=== PATIENT | male | born 1950 | race Caucasian/White ===

== ENCOUNTER 2021-02-12 14:10 | Emergency (ER) | payer MEDICARE, SELFPAY ==
[2021-02-12] VITALS (45 sets, daily range): BP systolic 122–164; BP diastolic 53–96; PULSE 55–76; RESP 10–26; TEMP 36.8; O2SAT 95–100
--- NOTE | ~2021-02-12 | XR_ITS ---
EXAMINATION: XR chest 2V DATE: 02/12/2021 15:05 INDICATION: Chest pain, shortness of breath and diaphoresis. TECHNIQUE: frontal and lateral views of the chest were obtained. COMPARISON: None FINDINGS: The lungs are clear with no focal airspace opacities, pulmonary edema, pleural effusion or pneumothor ax. The cardiomediastinal silhouette is normal. Coronary artery stenting. Cholecystectomy clips in th e upper abdomen. IMPRESSION: 1. No acute cardiopulmonary disease. Reviewed, dictated and finalized at location A.
--- NOTE | 2021-02-12 14:15 | ECG_ITS ---
Measurements Intervals [place] Rate: 57 P: 51 DE: 164 QRS: 13 QRSD: 98 T: -32 QT: 409 QTc: 401 Interpretive Statements SINUS BRADYCARDIA ATRIAL PREMATURE COMPLEXES INFERIOR INFARCT, AGE INDETERMINATE BASELINE ARTIFACT- V4 ABNORMAL ECG Electronically Signed On 02-12-2021 19:23:50 CDT by Casimiro Pop D.O.
[2021-02-12] MEDS: MORPHINE SULFATE (*CRX) 4 MG/ML INJ IV PUSH ×2 (14:27→17:10)
[2021-02-12 14:43] LABS: Basophils Percent Auto 0.3 % (0.2-1.2); Eosinophils Absolute Auto 0.1 K/mm3 (0-0.3); Hematocrit 40.5 % (42.0-52.0); Hemoglobin 14.1 g/dL (14.0-18.0); Immature Granulocyte Absolute 0.03 K/mm3 (0.00-0.031); Immature Granulocyte Percent A 0.3 % (0-0.5); Lymphocytes Absolute Auto 1.84 K/mm3 (0.9-3.2); Lymphocytes Percent Auto 21.4 % (18.3-44.2); Mean Corpuscular HGB Conc 34.8 g/dl (32-36); Mean Corpuscular Hemoglobin 31.9 pg (26-34); Mean Corpuscular Volume 91.6 fl (80-100); Mean Platelet Volume 9.8 fl (7.4-10.4); Monocytes Absolute Auto 0.7 K/mm3 (0.1-0.6); Monocytes Percent Auto 7.8 % (2.6-8.5); Neutrophils Absolute Auto 5.9 K/mm3 (1.3-6.7); Neutrophils Percent Auto 69.2 % (45.5-73.1); Platelet Count Result 153 k/mm3 (150-375); Red Blood Count 4.42 M/mm3 (4.6-6.20); Red Cell Distribution Width 12.2 % (11.5-14.5); White Blood Count 8.6 K/mm3 (4.5-10.0)
[2021-02-12 14:56] LABS: Anion Gap 8 mmol/L (8-16); Blood Urea Nitrogen 16 mg/dL (9-20); Calcium 8.9 mg/dL (8.4-10.2); Carbon Dioxide 22 mmol/L (22-30); Chloride 109 mmol/L (98-107); Estimated CRCL calculation 64 ml/min; Estimated Glomerular Filt Rate > 60; Glucose 105 mg/dL (65-110); Potassium 4.1 mmol/L (3.4-5.0); Sodium 139 mmol/L (137-145)
[2021-02-12 15:08] LABS: NT Pro B Type Natriuretic Pept 563 pg/mL (5-100); Troponin I < 0.012 ng/mL (0.000-0.034)
--- NOTE | 2021-02-12 15:21 | PC.NURSE ---
pt daughter made contact with [employer]. she wanted information on pt. she is not on pt contacts. explained to her that she is not on the contact list and that she was to get ahold of his that was on the list. daughter proceeded to let me know that she is an RN at [employer] and she demanded to talk with his nurse (jono) it was explained that the nurse was with another pt and again was asked to call pt . she yelled at me about whether we had a cardiac catheterization technician again she was told to call his . daughter got mad and hung up. i went to pt room to let the know to get ahold of his daughter. she was already on the phone with her getting information.
--- NOTE | 2021-02-12 15:24 | ED.CHESTPAIN ---
HPI - Chest Pain General Chief Complaint: Chest Pain Stated Complaint: CP Source: patient, family, EMS and RN notes reviewed History of Present Illness HPI narrative: Patient presents with chest pain. Patient ports symptoms started 30-40 minutes prior to arrival described as a squeezing sensation in his lower chest that radiates to his back he reports he had similar symptoms a long time ago when he was diagnosed with a heart attack. Since his initial heart attack he has had approximately 6 stents placed. He also reported nausea and sweating at the onset of symptoms. His symptoms started while he was sitting and driving. In route patient was given aspirin and nitro reports his symptoms have improved but are still present since those interventions Related Data Allergies Allergy/AdvReac Type Severity Reaction Status Date / Time Penicillins Allergy Hives Verified 02/12/21 14:26 Review of Systems Review of Systems: CONSTITUTIONAL: Denies fever, chills, or sweats. EYES: Denies visual changes, redness, or discharge. ENT: Denies rhinorrhea, congestion, sore throat, or otalgia. CARDIOVASCULAR: Denies palpitations, or edema. RESPIRATORY: Denies cough GASTROINTESTINAL: Denies abdominal pain, nausea, vomiting, or diarrhea. GENITOURINARY: Denies dysuria or hematuria. SKIN: Denies rash or itching. MUSCULOSKELETAL: Denies back pain, joint pain, or myalgia. NEUROLOGIC: Denies headache, numbness, dizziness, or weakness. PSYCHIATRIC: Denies anxiety or depression. All systems reviewed & are unremarkable except as noted in HPI and below Exam Narrative: GENERAL: Well-appearing, well-nourished, and in no acute distress. HEAD: Normocephalic, atraumatic. EYES: PERRLA and EOMI. ENT: Nares clear, no rhinorrhea or epistaxis. Mucous membranes moist. NECK: Supple. No masses. No JVD CHEST: Clear to auscultation. No respiratory distress. No wheezes rales or rhonchi HEART: Regular rate and rhythm. No murmur heard. Normal peripheral pulses. ABDOMEN: Soft, nontender, nondistended, normal active bowel sounds. EXTREMITIES: Normal range of motion. No edema. SKIN: Warm, dry, no rash. NEURO: No focal deficits. Alert and oriented x3. PSYCH: Normal mood and affect. Course Reevaluation(s) Reevaluation #1: Patient's pain is improving but still present results reviewed with patient recommended admission. Date: 02/12/21 Time: 15:27 Reevaluation #2: Patient is uncomfortable with being admitted to this facility as his daughter works at [facility] he is recommending he be transferred there there is any family members had poor interaction with staff and do not want to stay at this facility. Reevaluation #3: Patient accepted at [facility] by Dr. Jamil and Dr. Gross for unstable angina Date: 02/12/21 Time: 16:41 Vital Signs Vital signs: Vital Signs Temperature 36.8 C 02/12/21 14:11 Pulse Rate 61 02/12/21 14:11 Respiratory Rate 13 02/12/21 14:11 Blood Pressure 122/66 02/12/21 14:11 Pulse Oximetry 98 02/12/21 14:11 Temperature 36.8 C 02/12/21 14:11 Pulse Rate 71 02/12/21 17:15 Respiratory Rate 15 02/12/21 17:15 Blood Pressure 132/71 02/12/21 17:15 Pulse Oximetry 98 02/12/21 17:15 MDM - Chest Pain MDM Narrative Medical decision making narrative: Patient with multiple cardiac risk factors to include prior IN and multiple stents presents with chest pain similar to his prior IN. Labs and imaging obtained. Patient was treated with aspirin nitro and morphine. Symptoms improved with therapies labs returned with negative troponin imaging was clinically unremarkable EKG had T wave inversions in 3 and aVF I have no prior EKGs for comparison. Patient is high risk for cardiac event recommended admission. Family and patient for her to not be admitted this facility. Patient reports his daughter works does not clear them first for transfer that facility. Patient was transferred for unstable angina and further cardiac evaluation. Lab D
[2021-02-12 16:14] LABS: Prothrombin Time 13.4 Seconds (11.1-14.7)
[2021-02-12 16:24] LABS: D Dimer 0.27 ug/mL (<0.48)
--- NOTE | 2021-02-12 17:23 | PC.NURSE ---
Melisa from [facility] called with bed for this patient. Room 4214 Cardiac Tele Floor Call report: [phone] [place] [id number]
[2021-02-12 17:49] LABS: Troponin I < 0.012 ng/mL (0.000-0.034)
--- NOTE | 2021-02-12 17:52 | PC.NURSE ---
made contact with [facility] to transfer pt to [facility] in [place]. eta [id number]
--- NOTE | 2021-02-12 19:24 | PC.NURSE ---
Addendum entered by Deborah Blue 02/12/21 19:41: [facility] - no truck available [facility] Original Note: [facility] - no truck available.
--- NOTE | 2021-02-12 19:53 | PC.NURSE ---
called [facility] - no truck available
[2021-02-12 20:56] LABS: Troponin I < 0.012 ng/mL (0.000-0.034)
--- NOTE | 2021-02-12 21:11 | PC.NURSE ---
[facility] here
--- NOTE | 2021-02-12 21:23 | PC.NURSE ---
EMS is here for patient to transport to [facility] in [place]. Report given to EMS.
== END 2021-02-12 21:30 | disposition short-term general hospital (02) ==
PROVIDERS: Emergency Provider Emergency Medicine
DX: I20.0 Unstable angina (principal); I25.2 Old myocardial infarction; Z95.5 Presence of coronary angioplasty implant and graft; Z88.0 Allergy status to penicillin
CPT/HCPCS: 36415; 71046; 80048; 83880; 84484; 85025; 85380; 85610; 85730; 93005; 96374; 96376; 99285; J2270